=== PATIENT | female | born 2005 | race Caucasian/White ===

== ENCOUNTER → 2025-08-05 | Outpatient (CLI) | payer OTHER ==
[2025-08-05 14:38] LABS: Source, Urine Clean Catch
[2025-08-05 14:58] LABS: Red Blood Cells, Urine 50-100 /hpf (0-2)
== END ==
LOC: LAB 14:36 → LAB SHORT 14:36
PROVIDERS: Physician Assistant Medical
DX: R30.0 Dysuria (principal)
CPT/HCPCS: 81015; 87086